=== PATIENT | male | born 1975 | race Caucasian/White ===

== ENCOUNTER 2020-06-30 09:48 | Inpatient (IN) ==
--- NOTE | 2020-06-15 16:29 | PAT Medication Instructions ---
Medication Instructions Date of Service June 15, 2020 Home Medications acetaminophen [Tylenol Extra Strength] 1,000 mg PO UD PRN atenolol 25 mg PO QAM calcium carbonate [Tums] 200 mg PO UD PRN ibuprofen [Motrin] 600 mg PO Q6H PRN rosuvastatin [Crestor] 20 mg PO QAM ASK your surgeon for instructions ibuprofen [Motrin] 600 mg PO Q6H PRN DO NOT take the morning of surgery calcium carbonate [Tums] 200 mg PO UD PRN Take morning of surgery With a small sip of water, OTHERWISE NOTHING TO EAT OR DRINK AFTER MIDNIGHT: acetaminophen [Tylenol Extra Strength] 1,000 mg PO UD PRN (if needed, may be taken up to four hours before surgery) atenolol 25 mg PO QAM rosuvastatin [Crestor] 20 mg PO QAM Take evening before surgery acetaminophen [Tylenol Extra Strength] 1,000 mg PO UD PRN (if needed) calcium carbonate [Tums] 200 mg PO UD PRN (if needed) Other Notes If you have any questions please call us at [phone] or [phone] or [phone] or [phone]
--- NOTE | 2020-06-16 11:26 | Anesthesiology Consultation ---
Date of Service June 16, 2020 Assessment & Plan (1) Encounter for pre-operative examination: COVID Status: As of 06/16 assessment, patient denies travel to endemic area, known exposure/sick contacts, or symptoms of COVID19. Patient instructed that they and their household members must follow strict social distancing guidelines, wear a mask in public and avoid travel/events/gatherings for 14 days prior to surgery. Preoperative COVID19 testing to be completed prior to surgery per surgeon's arrangements. Patient made aware to self-isolate as much as possible between COVID testing and surgery. Pt is fully vaccinated. PCP Clearance 06/05/20 = "Pt has revised cardiac index score of No Risk Factors- 0.4% (95% CI: 0.1-0.8) for the surgery scheduled. Per my evaluation, the patient has been medically optimized for anesthesia." Patient markedly hypertensive at PAT appointment (162/117 HIBP with rpt 160/112 manual). BP was 148/100 at PCP clearance. Patient was advised to take an extra 25mg Atenolol when he got home and contact his PCP. I also left a message with the PCP office to make them aware so that they can follow-up with the patient for better optimization of his BP in case he does not do so himself. Chart Review Chart Review: Acceptable Risk for Surgery and Patient seen in Pre Admission Testing Teaching & Discussion Instructed NPO after midnight before surgery, except medications with 15 cc of water. Medication instructions provided according to the PAT guidelines. History Surgery Operation Date: 06/30/20 10:35 Proposed Procedures p L4-S1 Decompression/Fusion Spinal Cord Monitoring - Andrew Bosch DO Height/Weight Height: 5 ft 10 in Weight: 131.2 kg Allergies Allergy/AdvReac Type Severity Reaction Status Date / Time No Known Allergies Allergy Verified 06/12/20 08:16 Medications Home Medications Medication Instructions Recorded Confirmed Last Taken acetaminophen [Tylenol Extra 1,000 mg PO UD PRN 06/12/20 06/12/20 Unknown Strength] atenolol 25 mg PO QAM 06/12/20 06/12/20 Unknown calcium carbonate [Tums] 200 mg PO UD PRN 06/12/20 06/12/20 Unknown ibuprofen [Motrin] 600 mg PO Q6H PRN 04/09/21 04/09/21 Unknown rosuvastatin [Crestor] 20 mg PO QAM 06/12/20 06/12/20 Unknown Past Medical History Medical History (Updated 06/16/20 @ 11:55 by Rolly Duffy) Acid reflux INFREQUENT/TUMS PRN Herniated disc History of anesthesia reaction SLOW TO WAKE UP History of COVID-23 JAN 2020 HTN (hypertension) Markedly hypertensive at PAT appt and BP 148/100 at PCP clearance (no changes made). Patient advised to follow up with his PCP. Hyperlipidemia Nausea and vomiting after administration of anesthetic agent Exercise / Class Metabolic Activity II 4-5 Yardwork/Stairs/Walk up hill (Denies CP or SOB with 1 FOS usually, just limited by severe leg pain and using walker currently) Past Family History Family History Other Family history of diabetes mellitus Past Surgical History Surgical History History of cholecystectomy History of fusion of cervical spine C5, AGE 13 - FULL ROM History of hernia repair Past Anesthesia History No Family Hx of Anesthesia Complications Slow to wake, "Takes me forever to come out of it," but denies reintubation or unplanned admission. History of PONV No Hx of Motion Sickness and History of PONV (every time) Social History Smoking Status: Current some day smoker tobacco type: cigars Smoking cigarettes per day: CIGAR ON OCCASSION, NOTHING REGULAR/ADVISED NPO Do You Dip or Chew Tobacco: No Hx Alcohol Use: Yes Alcohol type: beer Alcohol Intake Frequency Comment: MAYBE ONCE A MONTH substance use type: does not use Review of Systems Pt denies any recent chest pain, shortness of breath, palpitations, cough, fever, URI, or uncontrolled acid reflux. Physical Exam Vital Signs BP: 162/117 (pt is visibly anxious and rates his current pain 4/10, reports he did take his atenolol this morning. Rpt BP 160/112. He denies any headaches, dizziness or visual changes, but is noticeably flushed in his face. Pt was a dvised to take another 25mg of atenolol when he gets home and call his PCP for further advice and possible follow-up visit.) P: 93bpm SPO2: 94% RA T: 98.4 F R: 16 ENMT Mouth: no dental restorations, no chipped teeth and no loose teeth Thyromental Distance: > or= 3.5 Finger Breadths Mallampati Class: II Neck normal visual inspection; neck extension not limited Midline posterior scar. Respiratory normal respiratory effort, lungs clear to auscultation Cardiovascular Rate/Rhythm: regular rhythm and + tachycardic (borderline) Heart Sounds: no murmur Vessels: no carotid bruit Extremities: no edema Testing Laboratory Results 06/16/20 11:52 06/16/20 11:52 PT 9.6 Seconds (9.0-12.0) 06/16/20 11:52 INR 0.9 (0.9-1.1) 06/16/20 11:52 APTT 23.5 Seconds (21.0-31.0) 06/16/20 11:52 Urine Color Yellow 06/16/20 Unknown Urine Appearance Clear (Clear) 06/16/20 Unknown Urine pH 5.5 (4.5-7.5) 06/16/20 Unknown Ur Specific [place] 1.016 (1.000-1.030) 06/16/20 Unknown Urine Protein Negative (Negative) 06/16/20 Unknown Urine Glucose (UA) Negative (Negative) 06/16/20 Unknown Urine Ketones Negative (Negative) 06/16/20 Unknown Urine Nitrite Negative (Negative) 06/16/20 Unknown Ur Leukocyte Esterase Negative (Negative) 06/16/20 Unknown Blood Type A Positive 06/16/20 11:52 Antibody Screen NEGATIVE 06/16/20 11:52 Electrocardiogram Date: 06/05/20 Findings: + NSR @ (70bpm) Chest X-Ray Date: 06/16/20 Findings: + NAD
--- NOTE | 2020-06-16 12:24 | XRay Report ---
XR chest Pre-admission PA/Lat HISTORY: 44 years-old Male PAT chronic back pain COMPARISON: None TECHNIQUE: PA and lateral views of the chest FINDINGS: Cardiomediastinal and hilar silhouettes are within normal limits. No pneumothorax, pleural effusion, airspace consolidation or overt pulmonary edema. Bones of the chest appear grossly intact. IMPRESSION: No acute process. ACT 112: Negative or not required by law. The above report was generated using voice recognition software. It may contain grammatical, syntax o r spelling errors. Electronically signed by: Vinnie Coleman M.D. 06/16/2020 12:23 PM
[2020-06-16 12:53] LABS: Basophils # (auto) 0.05 K/uL (0-0.2); Basophils % (auto) 0.7 %; Eosinophils # (auto) 0.29 K/uL (0-0.5); Eosinophils % (auto) 3.8 %; Immature Granulocytes # (auto) 0.02 K/uL (0.00-0.02); Immature Granulocytes % (auto) 0.3 %; Lymphocytes # (auto) 1.36 K/uL (1.2-3.4); Lymphocytes % (auto) 17.9 %; Mean Corpuscular Hemoglobin 31.5 pg (25-34); Mean Corpuscular Hgb Conc 35.7 g/dL (32-36); Mean Corpuscular Volume 88.2 fL (80-100); Mean Platelet Volume 9.3 fL (7.4-10.4); Monocytes # (auto) 0.56 K/uL (0.11-0.59); Monocytes % (auto) 7.4 %; Neutrophils # (auto) 5.31 K/uL (1.4-6.5); Neutrophils % (auto) 69.9 %; Platelet Count 376 K/uL (130-400); RDW Coefficient of Variation 12.5 % (11.5-14.5); Red Blood Count 4.76 M/uL (4.7-6.1); White Blood Count 7.59 K/uL (4.8-10.8)
[2020-06-16 12:56] LABS: Appearance Urine Clear (Clear); Bilirubin Urine Negative (Negative); Blood Urine Negative (Negative); Color Urine Yellow; Glucose Urine UA Negative (Negative); Ketones Urine Negative (Negative); Leukocyte Esterase Urine Negative (Negative); Nitrite Urine Negative (Negative); Protein Urine Negative (Negative); Specific Gravity Urine 1.016 (1.000-1.030); Urobilinogen Urine Negative (Negative); pH Urine 5.5 (4.5-7.5)
[2020-06-16 13:02] LABS: BUN Creatinine Ratio 20.4 (10-20); Calcium 9.6 mg/dl (8.5-10.1); Creatinine Clr Calc Pharmacy 142.7 ml/min; Est GFR (African American) 119.7; Est GFR (Non-African American) 103.3; Potassium 4.3 mmol/L (3.5-5.1)
[2020-06-16 13:05] LABS: INR 0.9 (0.9-1.1); Partial Thromboplastin Ratio 0.9; Partial Thromboplastin Time 23.5 Seconds (21.0-31.0); Prothrombin Time 9.6 Seconds (9.0-12.0)
[~2020-06-30 09:48] MED LIST: ACETAMINOPHEN 500 MG TAB PO SCH; CeleBREX 200 MG CAP PO SCH; GABAPENTIN 900 MG DOSE PO SCH; LR 15ML/HR IV SCH
[2020-06-30] MEDS ORDERED: fentaNYL citrate 100 MCG/2 ML VIAL IV PRN (10:11)
[2020-06-30] MEDS ORDERED: MEPERIDINE HCL 25 MG/ML CARP/VIAL IV PRN (10:11)
[2020-06-30] MEDS ORDERED: ePHEDrine sulfate 50 MG/ML AMP IV PRN (10:11)
[2020-06-30] MEDS ORDERED: ONDANSETRON INJ 2 MG/ML 2 ML VIAL IV PRN ×2 (10:11→15:57)
[2020-06-30] MEDS ORDERED: ATROPINE SULFATE 0.1 MG/ML 10ML SYR IV PRN (10:11)
[2020-06-30] MEDS ORDERED: LABETALOL HCL IV 5 MG/ML 20ML IV PRN (10:11)
[2020-06-30] MEDS ORDERED: HYDROmorphone INJ 1 MG/ML SYRINGE IV PRN ×2 (10:11→15:57)
[2020-06-30] MEDS ORDERED: PHENYLEPHRINE 100MCG/ML 5ML SYR IV PRN (10:11)
[2020-06-30] MEDS: Scopolamine 1 MG TDSY TD SCH (10:16)
[2020-06-30] MEDS ORDERED: MIDAZOLAM HCL 1 MG/ML 2ML VIAL ONE (10:53)
[2020-06-30] MEDS ORDERED: fentaNYL citrate 100 MCG/2 ML VIAL ONE (10:53)
--- NOTE | 2020-06-30 11:09 | History & Physical Bridge Note ---
Date of Service June 30, 2020 History & Physical Bridge Note I have examined the patient, reviewed the History & Physical and in the interval since the performance of the History & Physical I have noted the following changes of clinical significance: no changes noted
--- NOTE | 2020-06-30 11:10 | History & Physical Report ---
Date of Service June 30, 2020 Assessment & Plan (1) Lumbar disc herniation with radiculopathy: Admission and Anticipated Discharge Date Admission Date: L4-S1 decompression fusion History of Present Illness Chief Complaint: Back and leg pain Primary Care Provider: Anna Giraldo PA-C This is a 44-year-old male who presents with chronic persistent back and leg pain. Failing course of nonoperative care is here for surgical invention. Allergies Allergy/AdvReac Type Severity Reaction Status Date / Time No Known Allergies Allergy Verified 06/30/20 10:11 Home Medications Medication Instructions Recorded Confirmed Type acetaminophen [Tylenol Extra 1,000 mg PO UD PRN 06/12/20 06/30/20 History Strength] atenolol 25 mg PO QAM 06/12/20 06/30/20 History calcium carbonate [Tums] 200 mg PO UD PRN 06/12/20 06/30/20 History ibuprofen [Motrin] 600 mg PO Q6H PRN 06/12/20 06/30/20 History rosuvastatin [Crestor] 20 mg PO QAM 06/12/20 06/30/20 History losartan 50 mg PO DAILY 06/19/20 06/30/20 History loratadine [Claritin] 10 mg PO DAILY PRN 06/30/20 06/30/20 History Past Med/Surg History Medical History (Updated 06/30/20 @ 11:10 by Andrew Boshc DO) Acid reflux INFREQUENT/TUMS PRN Herniated disc History of anesthesia reaction SLOW TO WAKE UP History of COVID-23 JAN 2020 HTN (hypertension) Markedly hypertensive at PAT appt and BP 148/100 at PCP clearance (no changes made). Patient advised to follow up with his PCP. Hyperlipidemia Nausea and vomiting after administration of anesthetic agent Surgical History History of cholecystectomy History of fusion of cervical spine C5, AGE 13 - FULL ROM History of hernia repair Family History Other Family history of diabetes mellitus Social History Smoking Status: Current some day smoker Cigarettes Per Day: CIGAR ON OCCASSION, NOTHING REGULAR/ADVISED NPO; Do You Dip or Chew Tobacco: No; Hx Alcohol Use: Yes Alcohol type: beer Preferred Language: [place] Communication Ability: Effective Retail Associate Required: No Beliefs That Will Affect Care: None Current Living Situation: Spouse and Family Other Information That Helps Us Care for You: No Feels Safe at Home: Yes Assistive Devices: Glasses and Walker Physical Exam Physical Exam: Patient is alert and oriented Heart regular in rhythm Lungs clear to auscultation Results & Data ([place]) Vital Signs (Past 12 Hours) Vital Signs Temp Pulse Resp BP Pulse Ox 06/30/20 10:18 37.3 C 70 20 131/86 97
[2020-06-30] MEDS ORDERED: BUPIVACAINE/EPINEPHRINE 0.5% MPF 1:200,000 30 ML VIAL ONE (11:20)
[2020-06-30] MEDS ORDERED: FLOSEAL HEMOSTATIC MATRIX 10ML TOP ONE (12:20)
[2020-06-30] MEDS ORDERED: HYDROmorphone INJ 2 MG/ML SYR/VIAL ONE (12:45)
[2020-06-30] MEDS ORDERED: ONDANSETRON INJ 2 MG/ML 2 ML VIAL ONE (13:18)
[2020-06-30] MEDS ORDERED: NEOSTIGMINE METHYLSULFATE 1 MG/ML 10ML VIAL ONE (13:18)
[2020-06-30] MEDS ORDERED: PROMETHAZINE HCL INJ 25 MG/ML 1 ML VIAL ONE (13:18)
[2020-06-30] MEDS ORDERED: ROCURONIUM BROMIDE 10 MG/ML 5 ML VIAL IV ONE (13:18)
[2020-06-30] MEDS ORDERED: LIDOCAINE HCL 2% 2 ML VIAL/AMP(20MG/ML) INFIL ONE (13:18)
[2020-06-30] MEDS ORDERED: LARYING-O-JET KIT (LTA) ONE (13:18)
[2020-06-30] MEDS ORDERED: GLYCOPYRROLATE 0.2 MG/ML VIAL ONE (13:18)
[2020-06-30] MEDS ORDERED: DEXAMETHASONE SOD INJ 4 MG/ML VIAL ONE (13:18)
[2020-06-30] MEDS ORDERED: ePHEDrine sulfate 50 MG/ML SYR ONE (13:18)
[2020-06-30] MEDS ORDERED: PROPOFOL IV EMULSION 10 MG/ML 20 ML VIAL IV ONE (13:18)
--- NOTE | 2020-06-30 13:32 | Operative Report ---
Post Operative Report Pre & Post Diagnosis Operation Date: 06/30/20 11:25 Pre-Op Diagnosis: Lumbar spinal stenosis with neurogenic claudication and radiculopathy Morbid obesity Post-Op Diagnosis: Same I identified the patient and participated in the time-out.: Yes Procedure Operation Date: 06/30/20 11:25 Actual Procedures #1 lumbar decompression with bilateral medial facetectomies and foraminotomies L3-4, L4-5 and L5-S1. #2 posterior spinal fusion L4-5 L5-S1. #3 posterior instrumentation L4-5 L5-S1. #4 interbody fusion L4-5 L5-S1. #5 placement peek cage 14 x 26 mm at L4-5 and 11 x 26 mm at L5-S1. #6 placement locally harvested morselized autograft and posterior gutters. #7 placement of I factor in the interbody space and posterior gutters Surgeon Andrew Bosch DO Coremaker Apprentice Ana Paula Galan Estimated Blood Loss 250 Findings See Below Patient is 5 foot 10 inches tall weighing over 129 kg with a BMI in excess of 40. The patient's body habitus did contribute to significant technical diff iculty requiring her deepest retractors and longest instruments in order to perform his procedure. This had at least 50% increase to the operative time. Specimens None Indications This is a 44-year-old male who presents with above-mentioned diagnosis after failing course of nonoperative care is here for surgical invention. Description of Procedure Patient met with identified informed consent obtained. Patient was then taken to the operative suite underwent a patient placed in a prone position on the [place] table top [place] frame. All bony prominences well-padded eyes inspected to ensure no external pressure placed upon the. This point the lumbar spine was prepped and draped in normal sterile fashion. Sharp dissection with the assistance of Bovie cautery performed down to and exposing the lamina and transverse processes of L4-L5 and the sacral ala bilaterally. From caudal to cephalad fashion complete laminectomy of L5 L4 and partial laminectomy of L3 was performed including bilateral medial facetectomies and foraminotomies addressing all spinal stenosis. Also identified a massive discrimination at L4-5 on the right that had migrated caudally. This is removed in its entirety. Pedicle screws were then placed in L4-L5 and S1 levels bilaterally with assistance of fluoroscopy but was as jasmine placed. By way of a transforaminal portion right complete discectomy was performed endplates curetted to subcortically bone and a 11 x 26 mm peek cage filled with I factor tapped in position. Then proceeded L4-L5 and again by way of a transforaminal portion right complete discectomy performed endplates curetted to subcortical being bone and a 14 x 26 mm peek cage filled with I factor tapped in position. The rods were then compressed locked into final position bilaterally. The transverse processes of L4-L5 and sacral ala burred to subcortical bleeding bone. I factor combined with locally harvested morselized autograft was then placed in the posterior gutters. 15 round ANASTACIO drain was inserted. The incision was then closed with 1 Vicryl to fascia 2-0 Vicryl subcutaneously and 4 Monocryl for final skin closure. Steri- Strips dressings placed. Patient will continue PACU stable condition. Please note spinal cord monitoring was utilized at the procedure no changes noted. Lastly Ana Paula Galan was present throughout the entire surgery involved the patient positioning complex portions of the surgery and final skin closure. I attest to the content of the Intraoperative Record and any orders documented therein. Any exceptions are noted below.
--- NOTE | 2020-06-30 13:37 | Fluoroscopy Report ---
FL lumbar spine 2-3V CLINICAL HISTORY: L4-S1 DECOMPRESSION AND FUSION COMPARISON STUDY: None FLUOROSCOPY TIME: 25 seconds. NUMBER OF FLUOROSCOPIC IMAGES: 2 FINDINGS: 2 intraoperative fluoroscopic spot images reveal postsurgical changes of discectomies inter body fusions at the L4-5 and L5-S1 levels. There is posterior spinal fusion with L4-S1 pedicle screws and adjoining spinal rods. IMPRESSION: Postsurgical changes of an L4-S1 spinal decompression and fusion. ACT 112: Negative or not required by law. Electronically signed by: Chad Baeza M.D. 06/30/2020 1:36 PM
--- NOTE | 2020-06-30 14:33 | Anesthesiology Progress Note ---
Date of Service June 30, 2020 Anesthesia Post Procedure Vital Signs Vital Signs: Temp Pulse Pulse Resp BP BP Pulse Ox 06/30/20 14:25 36.4 C L 88 24 127/85 95 06/30/20 14:15 72 12 127/79 93 06/30/20 14:05 71 14 120/84 94 06/30/20 13:55 69 10 L 126/75 88 L 06/30/20 13:49 36.9 C 69 16 134/99 95 06/30/20 10:18 37.3 C 70 20 131/86 97 Pain Intensity Lower Back: Pain Intensity: 2 Transfer of Care Handoff Completed per policy Notes Mental Status: alert / awake / arousable Patient Amnestic to Procedure: Yes Nausea / Vomiting: adequately controlled Pain: adequately controlled Airway Patency, RR, SpO2: stable & adequate BP & HR: stable & adequate Hydration State: stable & adequate Anesthetic Complications: no major complications apparent
[2020-06-30] MEDS ORDERED: traMADol HCL 50 MG TABLET PO PRN (15:57)
[2020-06-30] MEDS ORDERED: ACETAMINOPHEN 1,000 MG/100 ML VIAL IV PRN (15:57)
[2020-06-30] MEDS ORDERED: LORazepam 0.5 MG TAB PO PRN (15:57)
[2020-06-30] MEDS ORDERED: PROMETHAZINE HCL 12.5 MG in SODIUM CHLORIDE 0.9% 50 ML IV PRN (15:57)
[2020-06-30] MEDS ORDERED: CALCIUM CARBONATE 500 MG CHEWABLE TAB PO PRN (15:57)
[2020-06-30] MEDS ORDERED: FAMOTIDINE 20 MG TAB PO PRN (15:57)
[2020-06-30] MEDS ORDERED: LORazepam 0.5 MG/1 ML VIAL IV PRN (15:57)
[2020-06-30] MEDS ORDERED: hydrOXYzine HCl 25 MG TAB PO PRN (15:57)
[2020-06-30] MEDS ORDERED: ALUMINUM/MAGNESIUM SUSP 30 ML UDC PO PRN (15:57)
[2020-06-30] MEDS ORDERED: ONDANSETRON 4 MG OD TAB PO PRN (15:57)
[2020-06-30] MEDS ORDERED: DO NOT ADMINISTER PNEUMOCOCCAL VACCINE PRN (15:57)
[2020-06-30] MEDS ORDERED: NALOXONE HCL 0.4 MG/1 ML VIAL/CARP IV PRN (15:57)
[2020-06-30] MEDS ORDERED: diphenhydrAMINE Capsule 25 MG CAP PO PRN (15:57)
[2020-06-30] MEDS ORDERED: HYDROmorphone INJ 0.5 MG/0.5 ML SYR IV PRN (15:57)
[2020-06-30] MEDS ORDERED: NON-FORMULARY MEDICATION (Acetaminophen 500 mg Capsule) PO PRN (15:57)
[2020-06-30] MEDS ORDERED: ACETAMINOPHEN 500 MG TAB PO PRN (15:57)
[2020-06-30] MEDS ORDERED: DO NOT ADMINISTER FLU VACCINE PRN (15:57)
[2020-06-30] MEDS ORDERED: SOD PHOSPHATE/SOD BIPHOSPHATE ENEMA 132 ML BTL PR PRN (15:57)
[2020-06-30] MEDS ORDERED: bisacodyL 10 MG SUPP PR PRN (15:57)
[2020-06-30] MEDS ORDERED: METOCLOPRAMIDE HCL INJ 5 MG/ML 2 ML VIAL IV PRN (15:57)
[2020-06-30] MEDS ORDERED: LORATADINE 10 MG TAB PO PRN (15:57)
[2020-06-30] MEDS ORDERED: MAGNESIUM HYDROXIDE SUSP 30 ML UDC PO PRN (15:57)
[2020-06-30] MEDS: CHECK SCOPOLAMINE PATCH PLACEMENT SCH ×2 (17:54→17:58)
[2020-06-30] MEDS: LACTATED RINGER'S 1,000 ML IV SCH (17:58)
[2020-06-30] MEDS: KETOROLAC 30 MG/ML VIAL IV SCH ×2 (17:59→23:04)
[2020-06-30] MEDS: ceFAZolin 2000MG 2,000 MG/15 ML SYR IV SCH (20:00)
[2020-06-30] MEDS: DOCUSATE SODIUM/SENNA 50/8.6MG TAB PO SCH (20:00)
[2020-07-01] MEDS: CHECK SCOPOLAMINE PATCH PLACEMENT SCH ×4 (01:02→23:27)
[2020-07-01] MEDS: ceFAZolin 2000MG 2,000 MG/15 ML SYR IV SCH (03:26)
[2020-07-01] MEDS: POLYETHYLENE (MIRALAX) 17 GM PACK PO SCH ×4 (05:35→23:26)
[2020-07-01] MEDS: KETOROLAC 30 MG/ML VIAL IV SCH ×2 (05:35→11:26)
[2020-07-01] MEDS: Scopolamine 1 MG TDSY TD SCH (05:36)
[2020-07-01 06:10] LABS: Basophils # (auto) 0.01 K/uL (0-0.2); Basophils % (auto) 0.1 %; Hematocrit (blood only) 34.5 % (42-52); Hemoglobin 11.9 g/dL (14.0-18.0); Immature Granulocytes # (auto) 0.02 K/uL (0.00-0.02); Immature Granulocytes % (auto) 0.2 %; Lymphocytes % (auto) 11.6 %; Mean Corpuscular Hemoglobin 30.6 pg (25-34); Mean Corpuscular Hgb Conc 34.5 g/dL (32-36); Mean Corpuscular Volume 88.7 fL (80-100); Mean Platelet Volume 8.5 fL (7.4-10.4); Monocytes % (auto) 4.6 %; Neutrophils # (auto) 7.22 K/uL (1.4-6.5); Neutrophils % (auto) 83.5 %; Platelet Count 265 K/uL (130-400); RDW Coefficient of Variation 12.7 % (11.5-14.5); RDW Standard Deviation 40.6 fL (36.4-46.3); Red Blood Count 3.89 M/uL (4.7-6.1); White Blood Count 8.65 K/uL (4.8-10.8)
[2020-07-01 06:47] LABS: BUN Creatinine Ratio 19.5 (10-20); Calcium 9.5 mg/dl (8.5-10.1); Creatinine Clr Calc Pharmacy 131.3 ml/min; Est GFR (African American) 110.2; Est GFR (Non-African American) 95.1; Potassium 4.1 mmol/L (3.5-5.1)
[2020-07-01] MEDS: LACTATED RINGER'S 1,000 ML IV SCH (08:12)
[2020-07-01] MEDS: ROSUVASTATIN CALCIUM 20 MG TAB PO SCH (08:57)
[2020-07-01] MEDS: LOSARTAN POTASSIUM 50 MG TAB PO SCH (08:58)
[2020-07-01] MEDS: ATENOLOL 25 MG TABLET PO SCH (10:02)
--- NOTE | 2020-07-01 10:49 | Orthopedic Progress Note ---
Date of Service July 01, 2020 Assessment & Plan (1) Lumbar disc herniation with radiculopathy: Admission and Anticipated Discharge Date Admission Date: June 30, 2020 This time continue physical therapy monitor ANASTCAIO outpt Subjective Patient's back pain is controlled leg pain markedly improved Physical Exam Physical Exam: Patient is seen in the chair at the bedside. Is good strength testing. Appears comfortable. Results & Data ([facility] Vital Signs (Past 12 Hours) Vital Signs Temp Pulse Resp BP Pulse Ox 07/01/20 10:01 80 121/78 07/01/20 08:56 78 109/68 07/01/20 06:52 37.1 C 74 16 111/71 95 07/01/20 03:30 36.8 C 71 16 96/60 L 94
--- NOTE | 2020-07-01 13:18 | Orthopedic Progress Note ---
Date of Service July 01, 2020 Assessment & Plan (1) Lumbar disc herniation with radiculopathy: Admission and Anticipated Discharge Date Admission Date: June 30, 2020 This time continue physical therapy monitor his ANASTACIO operatively discharge home next few days. Subjective Patient's back pain is controlled leg pain improved. Physical Exam Physical Exam: Patient is in the chair at the bedside. Is good strength testing. Results & Data ([facility]) Vital Signs (Past 12 Hours) Vital Signs Temp Pulse Resp BP BP Pulse Ox 07/01/20 11:35 36.9 C 69 16 132/86 92 07/01/20 10:01 80 121/78 07/01/20 08:56 78 109/68 07/01/20 06:52 37.1 C 74 16 111/71 95 07/01/20 03:30 36.8 C 71 16 96/60 L 94
[2020-07-01] MEDS: DOCUSATE SODIUM/SENNA 50/8.6MG TAB PO SCH (17:31)
[2020-07-01] MEDS: oxyCODONE HCL IR 5 MG TAB (IMMEDIATE RELEASE) PO PRN ×2 (17:31→23:30)
[2020-07-02] MEDS: POLYETHYLENE (MIRALAX) 17 GM PACK PO SCH ×4 (05:10→22:52)
[2020-07-02] MEDS: oxyCODONE HCL IR 5 MG TAB (IMMEDIATE RELEASE) PO PRN ×4 (06:23→22:50)
[2020-07-02] MEDS: CHECK SCOPOLAMINE PATCH PLACEMENT SCH ×3 (07:55→23:41)
[2020-07-02] MEDS: LOSARTAN POTASSIUM 50 MG TAB PO SCH (08:34)
[2020-07-02] MEDS: ATENOLOL 25 MG TABLET PO SCH (08:34)
[2020-07-02] MEDS: ROSUVASTATIN CALCIUM 20 MG TAB PO SCH (08:35)
[2020-07-02] MEDS: dexAMETHasone 8 MG in SYRINGE 0 ML IV SCH (08:36)
--- NOTE | 2020-07-02 08:38 | Orthopedic Progress Note ---
Date of Service July 02, 2020 Assessment & Plan (1) Lumbar disc herniation with radiculopathy: Admission and Anticipated Discharge Date Admission Date: June 30, 2020 We will continue physical therapy today monitor his ANASTACIO output anticipate discharge home tomorrow. Subjective Patient's back pain is controlled leg symptoms markedly improved Physical Exam Physical Exam: On exam he is in to stand and ambulate without difficulty good strength testing. Results & Data ([facility]) Vital Signs (Past 12 Hours) Vital Signs Temp Pulse Resp BP Pulse Ox 07/02/20 08:20 36.8 C 88 17 107/76 92 07/01/20 23:28 37.3 C 78 18 97/64 L 91
[2020-07-02] MEDS ORDERED: dexAMETHasone 8 MG in SYRINGE 0 ML IV SCH (09:00)
[2020-07-02] MEDS: DOCUSATE SODIUM/SENNA 50/8.6MG TAB PO SCH (20:52)
[2020-07-03] MEDS: oxyCODONE HCL IR 5 MG TAB (IMMEDIATE RELEASE) PO PRN ×2 (04:13→09:44)
[2020-07-03] MEDS: POLYETHYLENE (MIRALAX) 17 GM PACK PO SCH (05:11)
[2020-07-03] MEDS: LOSARTAN POTASSIUM 50 MG TAB PO SCH (08:03)
[2020-07-03] MEDS: ATENOLOL 25 MG TABLET PO SCH (08:04)
[2020-07-03] MEDS: ROSUVASTATIN CALCIUM 20 MG TAB PO SCH (08:04)
[2020-07-03] MEDS: dexAMETHasone 8 MG in SYRINGE 0 ML IV SCH (08:05)
--- NOTE | 2020-07-03 10:19 | Discharge Summary ---
Date of Service July 03, 2020 Admission HPI Per Admitting Provider This is a 44-year-old male who presents with chronic persistent back and leg pain. Failing course of nonoperative care is here for surgical invention. Principal Diagnosis Lumbar spinal stenosis with neurogenic claudication Discharge Data Allergies Allergy/AdvReac Type Severity Reaction Status Date / Time No Known Allergies Allergy Verified 06/30/20 10:11 Procedures Performed Operation Date: 06/30/20 11:25 Actual Procedures p L4-S1 Decompression/Fusion with spinal cord monitoring(Not Applicable) - Andrew Bosch DO Ordered Studies 06/30/20 11:25 FL lumbar spine 2-3V Routine Hospital Course (1) Lumbar disc herniation with radiculopathy: Patient with lumbar decompression fusion tolerated so was taken to orthopedic for postop labor postop day #1 was up and ambulating progressed to postop day #2 postop day #3 ANASTACIO drainage decreased probably. Pain well controlled. Strength intact. Subsequent discharge home. Discharge orders instructions were on the chart for further review. Total Time Total Time Spent Total Time Spent (In Minutes): 20 minutes Discharge Plan Discharge Items Patient Disposition: Home - Self-Care Reason For Visit: Other Intevertebral DIsc Displacement, Lumbar Reg Discharge Diagnosis: Lumbar spinal stenosis with radiculopathy Activity: As commented below Non-emergency contact: Primary Care Provider Call non-emergency contact if: you have any medication questions Follow-up/Referrals: Anna Giraldo PA-C [Primary Care Provider] - Diet: Regular Ambulatory Orders: Basic Metabolic Panel (Routine) Timeframe: 20200616 Location: Determined by Patient Ordered By: Andrew Bosch Complete Blood Count with Diff (Routine) Timeframe: 20200616 Location: Determined by Patient Ordered By: Andrew Bocsh XR chest 2V PA/lateral (Routine) Timeframe: 20200616 Location: Determined by Patient Ordered By: Andrew Bosch ECG 12 lead EKG (Routine) Timeframe: 20200616 Location: Determined by Patient Ordered By: Andrew Bosch Prothrombin Time INR (Routine) Timeframe: 20200616 Location: Determined by Patient Ordered By: Andrew Bosch Partial Thromboplastin Time (Routine) Timeframe: 20200616 Location: Determined by Patient Ordered By: Andrew Bosch Type and Screen (Routine) Timeframe: 20200616 Location: Determined by Patient Ordered By: Andrew Bosch Urine rflx Micros+Cult if Ind (Routine) Timeframe: 20200616 Location: Determined by Patient Ordered By: Andrew Crook Attending Provider Instructions: ACTIVITY RECOMMENDATIONS: SELF CARE INSTRUCTIONS AFTER THORACIC/LUMBAR FUSIONS 1. You may walk to your tolerance. It is good exercise for your legs and back. Expect some back and intermittent leg aches and pains. 2. You may perform "counter-top" level activities (make a sandwich, aide with a project, etc.). 3. No bending or lifting of more than 10 pounds or back twisting of any nature (roll like a log when turning in bed). 4. You may ride in a car for 20-30 minutes at a time. No driving until after your first visit with your doctor. 5. Frequent changes of position and restricting sitting to 30 minutes at a time will help limit the amount of back spasms and stiffness you may experience. 6. You may discontinue the use of ambulatory aids (cane, crutches, etc.) once your strength and confidence allow. 7. You may paper final inspector the shower and let water strike your incision when you arrive home at least once daily. Do not take a tub bath, sit in a hot tub or go into a swimming pool until after your first recheck in the office. SPECIAL CARE INSTRUCTIONS: VERY IMPORTANT TO READ AND REVIEW A. Your surgical incision has been closed with a cosmetic suture under the skin that will dissolve in about 6 weeks. In 14 days, you can use a pair of clean scissors and cut the suture that is left outside of the skin at the ends of your incision. 1. The small skin tapes can be removed 7 days after surgery if they have not fallen off by that point. 2. You may keep the wound open to air as much as possible to promote healing after post-op day number 5 unless told otherwise by your doctor. 3. If you think the wound looks like it is becoming infected (redness or worsening drainage) and/or you are experiencing fever, chill or worsening back pain and muscle spasms, contact the office so that we may evaluate you as soon as possible. B. Complications are uncommon, but please contact us if you have any signs or symptoms of: 1. wound infection (fever higher than 102.5 degrees F, redness, separation of wound, drainage, or increasing pain from the incision) 2. blood clots in legs (pain, swelling, redness and warmth in legs) 3. urinary tract infection (fever higher than 102.5 degrees F, burning upon urination or increased frequency of urination) 4. nerve problems (inability to walk on your toes or heels, numbness, loss of bowel or bladder control) 5. any other symptoms that concern you C. Please call the office at if you have any concerns or questions about your operation or recovery. D. No smoking! Smoking drastically decreases the chance of a solid fusion. E. Do not take any anti-inflammatory medications (Indocin, Advil, Motrin, Aspirin, Naprosyn, etc.) as these may inhibit the chance of a solid fusion. Tylenol is okay to take for pain. MANAGING PAIN AFTER SPINAL SURGERY 1. Narcotic medication is intended for short-term use and will be provided for surgical pain. Surgical pain usually lasts for a period of 4-6 weeks. Narcotic medication includes Percocet, Vicodin, Darvocet, Tylenol #3 or Lortab. 2. Longer-term pain is more appropriately treated with non-narcotic medication such as Tylenol ES. 3. Muscle spasm is not appropriately treated with narcotics. Muscle relaxers such as Soma, Flexeril or Skelaxin can be used along with Tylenol ES. 4. Remember that we all live with some "aches and pains". This is not unusual or uncommon after an injury or as we get older. a. Back pain is expected and may include muscle spasms for 4 to 6 weeks after surgery. The pain should gradually improve. If the pain worsens for no apparent reason, please contact the office. b. Intermittent leg pain may also be experienced and should not be concerned about unless it worsens for no apparent reason. If so, please contact the office. 5. We will provide appropriate medication within the normal guidelines of their prescribed use. We will also be very cautious and aware of potential abuse and extended duration of patients' medication needs. a. Pain medications are for your comfort and to assist with sleep and rest so that the tissue can heal. They are not provided in order to return to normal activity and should not be used through the day. To do so or worsening pain at night can result from ongoing tissue damage and development of tolerance to the prescribed medicine. 6. Please allow 2-3 days to process refills. Prescriptions will not be mailed but must be picked up at the office. FOLLOW UP VISIT: Keep your scheduled follow-up appointment. Any questions, please call the office at . Pending Studies at Discharge: No Stand-Alone Forms: [facility], Smoking Cessation Medications and DC Order Prescriptions: New tramadol 50 mg tablet 50 mg PO Q6H PRN (Reason: pain, moderate) Qty: 30 RF: 0 oxycodone 5 mg tablet 5 mg PO Q6H PRN (Reason: pain, severe) Qty: 30 RF: 0 Continued atenolol 25 mg Tablet 25 mg PO QAM RF: 0 ibuprofen 600 mg Tablet 600 mg PO Q6H PRN (Reason: Pain) RF: 0 acetaminophen 500 mg Capsule 1,000 mg PO UD PRN (Reason: Pain) RF: 0 rosuvastatin [Crestor] 20 mg Tablet 20 mg PO QAM RF: 0 calcium carbonate [Tums] 200 mg calcium (500 mg) Tablet,Chewable 200 mg PO UD PRN (Reason: Acid Reflux) RF: 0 losartan 50 mg Tablet 50 mg PO DAILY RF: 0 loratadine [Claritin] 10 mg Tablet 10 mg PO DAILY PRN (Reason: Itching) RF: 0 Discharge Orders: Discharge Order (Routine); Ordered 07/03/20 Ordered By: Andrew Bosch Admission Data Admit Date/Time: 06/30/20 14:01 Attending Provider: Andrew Bosch Admit Provider: Andrew Bosch Primary Care Provider: Anna Giraldo
== END 2020-07-03 12:00 | disposition home or self-care (01) | DRG 454 ==
LOC: ASU 09:48 → 3E 14:01